=== PATIENT | male | born 1965 | race Caucasian/White ===

== ENCOUNTER 2016-09-05 11:24 | Day surgery (SDC) | payer BC ==
[2016-09-01 14:04] LABS: HEMATOCRIT 43.4 % (40.0-51.0); HEMOGLOBIN 14.4 g/dL (13.6-17.8)
[2016-09-01 14:18] LABS: BUN (BLOOD UREA NITROGEN) 12 MG/DL (6-23); CALCIUM, SERUM 8.8 MG/DL (8.5-10.4); CHLORIDE, SERUM 108 MMOL/L (96-112); CO2 (CARBON DIOXIDE) 27 MMOL/L (24-34); GFR AFRICAN AMERICAN 89 ML/MIN (>=60); GFR NON AFRICAN AMERICAN 77 ML/MIN (>=60); GLUCOSE, SERUM 80 MG/DL (60-99); POTASSIUM, SERUM 4.3 MMOL/L (3.5-5.3); SODIUM, SERUM 142 MMOL/L (135-148)
--- NOTE | ~2016-09-05 | OP ---
Record Of Operation [facility] [address] [place]. [address] NAME: KARRI SPENCE : 61 STATUS : [facility]#: [id number] AGE: 50 ADM/REG DATE : 09/05/16 MR#: [id number] REPORT SERV DATE: 09/05/16 DICTATED BY: Luke QUINTERO DATE: 09/05/16 REPORT STATUS : Draft TRANSCRIBED BY: FIDE DATE: 09/05/16 DATE OF PROCEDURE: 09/05/2016 PREOPERATIVE DIAGNOSIS: Elevated PSA. POSTOP DIAGNOSIS: Elevated PSA. PROCEDURE: Transrectal ultrasound guided needle biopsy of the prostate. ANESTHESIA: MAC. COMPLICATIONS: None. DRAINS: None. BRIEF HISTORY: Mr. Spence is a 50-year-old white male seen recently for an elevated PSA that persisted. His last PSA was 6.66 with 12% free. We discussed options and decided to proceed with biopsy. The risks of bleeding, infection, anesthesia, injury to adjacent organs, inability to detect cancer even if present, etc., were all discussed. There were no unanswered questions. He requested anesthesia. DESCRIPTION OF PROCEDURE: Under excellent MAC anesthesia, the patient was placed in the left lateral decubitus position knees to chest. Transrectal ultrasonography was performed, which showed a slightly intravesical median lobe and a prostate volume of 38 mL. I performed a total of 14 biopsies, two from the left base, three from the left mid gland, two from the left apex; similarly, two from the right base, three from the right mid gland, two from the right apex. The patient tolerated the procedure well and will be discharged as an outpatient with the following instructions. DISCHARGE INSTRUCTIONS: 1. Home today. 2. Call for severe bleeding or fever greater than 101. Otherwise, follow up in my office in one week to review pathology. IRENE/FIDE Luke Quintero M.D. / [id number] CC: Lv Beltran M.D.
[~2016-09-05 11:24] MED LIST: ALEVE220 MG PO
== END 2016-09-05 16:22 | disposition home or self-care (01) ==
LOC: SDC 11:24
PROC: 0VB03ZX Excision of Prostate, Percutaneous Approach, Diagnostic (ICD-10-PCS; principal; 2016-09-05 12:45)
DX: R97.20 Elevated prostate specific antigen [PSA] (principal); G47.33 Obstructive sleep apnea (adult) (pediatric); Z99.89 Dependence on other enabling machines and devices; Z87.442 Personal history of urinary calculi; Z98.818 Other dental procedure status; Z98.890 Other specified postprocedural states
CPT/HCPCS: 36415; 76872; 76942; 80048; 85014; 85018; 88305; 93005; J2250; J3010